=== PATIENT | male | born 1985 | race Caucasian/White ===

== ENCOUNTER 2021-10-12 05:41 | Emergency (ER) | payer MEDICAID ==
[~2021-10-12] VITALS: Ht 167.6 cm; Wt 59.0 kg
[~2021-10-12 05:41] MED LIST: CYCL-1 PO; IBUP-1985 PO; IBUP-1986 PO; ONDA4TAB12 PO; TAMS0.4C32 PO
[2021-10-12] MEDS ORDERED: dexamethasone sod phosphate 10mg/ml inj IV STA (05:45)
[2021-10-12] MEDS ORDERED: famotidine/PF 10 mg/ml inj IV ONE (05:45)
[2021-10-12] MEDS ORDERED: diphenhydrAMINE 50 mg/ml inj IV ONE (05:45)
[2021-10-12] MEDS ORDERED: normal saline 1000ML IV soln IVB ONE (05:45)
[2021-10-12] MEDS: epiNEPHrine 1 mg/ml inj SQ PRN ×2 (05:51→06:12)
[2021-10-12] MEDS ORDERED: PRED20TA PO (05:54)
[2021-10-12] MEDS ORDERED: EPIN0.3P3 IJ (05:54)
[2021-10-12] MEDS ORDERED: dexamethasone sod phosphate 10mg/ml inj PO STA (06:09)
--- NOTE | 2021-10-12 06:09 | NUR ---
UNABLE TO ESTABLISH AN IV AT THIS TIME. PER MD CONTRERAS GIVE 50MG BENADRYL IM AND 10MG DECADRON ORAL WELL 20MG PEPCID ORAL.
[2021-10-12] MEDS ORDERED: diphenhydrAMINE 50 mg/ml inj IM ONE (06:10)
[2021-10-12] MEDS ORDERED: famotidine 10mg tablet PO SCH (06:10)
[2021-10-12] MEDS ORDERED: famotidine 20mg tablet PO ONE (06:10)
[2021-10-12 08:23] VITALS: BP 112/64
== END 2021-10-12 09:33 | disposition home or self-care (01) ==
LOC: ER 05:41
DX: T78.1XXA Other adverse food reactions, not elsewhere classified, initial encounter (principal); R09.89 Other specified symptoms and signs involving the circulatory and respiratory systems; F12.90 Cannabis use, unspecified, uncomplicated; Z87.442 Personal history of urinary calculi; Z98.890 Other specified postprocedural states; Z56.0 Unemployment, unspecified; Z79.899 Other long term (current) drug therapy; Y92.89 Other specified places as the place of occurrence of the external cause
CPT/HCPCS: 96372; 99284; J0171; J1100; J1200

== ENCOUNTER 2021-10-15 12:04 | Emergency (ER) | payer MEDICAID ==
[~2021-10-15] VITALS: Ht 167.6 cm; Wt 59.0 kg
[~2021-10-15 12:04] MED LIST changes: +EPIN0.3P3 IJ; +PRED20TA PO
--- NOTE | 2021-10-15 12:12 | NUR ---
NO NEED FOR EKG PER DR CONTRERAS.
[2021-10-15] MEDS ORDERED: dexamethasone sod phosphate 10mg/ml inj IV STA (12:56)
[2021-10-15] MEDS ORDERED: famotidine/PF 10 mg/ml inj IV ONE (13:00)
[2021-10-15] MEDS ORDERED: normal saline 1000ML IV soln IVB ONE (13:00)
[2021-10-15] MEDS ORDERED: diphenhydrAMINE 50 mg/ml inj IV ONE (13:00)
[2021-10-15] MEDS ORDERED: diphenhydrAMINE 25mg capsule PO ONE (13:10)
[2021-10-15] MEDS ORDERED: famotidine 20mg tablet PO ONE (13:10)
--- NOTE | 2021-10-15 13:17 | NUR ---
PT DIFFICULT STICK FOR IV. PER DIANE, CHANGE ALL MEDS TO ORAL. ORDER CHANGED
[2021-10-15 13:34] VITALS: BP 130/84
== END 2021-10-23 09:59 | disposition home or self-care (01) ==
LOC: ER 12:05
DX: T78.1XXD Other adverse food reactions, not elsewhere classified, subsequent encounter (principal); R21 Rash and other nonspecific skin eruption; Z87.442 Personal history of urinary calculi; Z56.0 Unemployment, unspecified; Z79.899 Other long term (current) drug therapy; X58.XXXD Exposure to other specified factors, subsequent encounter
CPT/HCPCS: 99283; Q0163

== ENCOUNTER 2021-10-26 00:16 | Emergency (ER) | payer MEDICAID ==
[~2021-10-26] VITALS: Ht 167.6 cm; Wt 59.0 kg
[2021-10-26 00:28] VITALS: BP 121/78
[2021-10-26] MEDS ORDERED: ALBU8.5H17 INH (19:22)
[2021-10-26] MEDS ORDERED: PRED10TA23 PO (19:27)
== END 2021-10-26 02:19 | disposition left against medical advice (07) ==
LOC: ER 00:16
DX: R06.02 Shortness of breath (principal); Z53.21 Procedure and treatment not carried out due to patient leaving prior to being seen by health care provider
CPT/HCPCS: 93005

== ENCOUNTER 2021-10-26 15:52 | Emergency (ER) | payer MEDICAID ==
[~2021-10-26] VITALS: Ht 165.1 cm; Wt 59.1 kg
[2021-10-26 16:09] VITALS: BP 118/80
[2021-10-26] MEDS ORDERED: ipratropium/albuterol 3ml nebule NEB ONE (16:55)
[2021-10-26] MEDS ORDERED: predniSONE 20 mg tablet PO ONE (17:00)
[2021-10-26] MEDS ORDERED: ALBU8.5H17 INH (19:22)
[2021-10-26] MEDS ORDERED: PRED10TA23 PO (19:27)
== END 2021-10-26 19:35 | disposition home or self-care (01) ==
LOC: ER 15:53
DX: R06.2 Wheezing (principal); L23.7 Allergic contact dermatitis due to plants, except food; R06.02 Shortness of breath; F12.90 Cannabis use, unspecified, uncomplicated; Z87.442 Personal history of urinary calculi; Z98.890 Other specified postprocedural states; Z56.0 Unemployment, unspecified; Z79.899 Other long term (current) drug therapy
CPT/HCPCS: 94640; 99283; J7512; 94760

== ENCOUNTER 2022-01-24 20:33 | Emergency (ER) | payer MEDICAID ==
[~2022-01-24] VITALS: Ht 165.1 cm; Wt 59.1 kg
[~2022-01-24 20:33] MED LIST changes: +ALBU8.5H17 INH; -PRED20TA PO
[2022-01-24 20:35] VITALS: BP 124/78
== END 2022-01-24 22:35 | disposition left against medical advice (07) ==
LOC: ER 20:33
DX: T78.40XA Allergy, unspecified, initial encounter (principal); Z53.21 Procedure and treatment not carried out due to patient leaving prior to being seen by health care provider; Y92.89 Other specified places as the place of occurrence of the external cause

== ENCOUNTER 2022-02-17 03:11 | Observation (INO) | payer MEDICAID ==
[~2022-02-17] VITALS: Ht 165.1 cm; Wt 59.1 kg
--- NOTE | 2022-02-17 06:44 | NUR ---
Pt to CT. Transferred with SBA to wheelchair.
[2022-02-17 08:22] LABS: ALANINE AMINOTRANSFERASE 31 U/L (12-78); ALBUMIN 3.4 G/DL (3.4-5.0); ALBUMIN/GLOBULIN RATIO 0.6 (1.1-1.5); ALKALINE PHOSPHATASE 124 IU/L (46-116); ANION GAP 11 (8-16); ASPARTATE AMINO TRANSFERASE 27 U/L (10-37); BILIRUBIN,TOTAL 0.7 MG/DL (0.1-1.0); BLOOD UREA NITROGEN 7 MG/DL (7-18); C-REACTIVE PROTEIN 8.51 MG/DL (0.0-0.5); CALCIUM 8.8 MG/DL (8.5-10.1); CHLORIDE 101 MMOL/L (99-107); CREATININE 0.78 MG/DL (0.60-1.10); GLUCOSE 109 MG/DL (70-104); POTASSIUM 3.9 MMOL/L (3.5-5.1); SODIUM 139 MMOL/L (135-145); TOTAL CARBON DIOXIDE 26.8 MMOL/L (24-32); TOTAL PROTEIN 8.8 G/DL (6.4-8.2); eGFR > 90 ML/MIN
[2022-02-17 09:31] LABS: BASOPHILS # (AUTO) 0.1 X10'3 (0-0.2); BASOPHILS % (AUTO) 0.6 % (0-1); EOSINOPHILS # (AUTO) 0.2 X10'3 (0-0.9); HEMOGLOBIN 13.6 g/dl (14.0-17.9); LYMPHOCYTES # (AUTO) 1.5 X10'3 (1.1-4.8); LYMPHOCYTES % (AUTO) 13.2 % (21-51); MEAN CORPUSCULAR HGB CONC 33.8 g/dL (33.0-36.5); MEAN CORPUSCULAR VOLUME 79.9 FL (78-98); MEAN PLATELET VOLUME 6.7 FL (7.4-10.4); MONOCYTES # (AUTO) 0.7 X10'3 (0-0.9); MONOCYTES % (AUTO) 6.1 % (2-12); NEUTROPHILS # (AUTO) 8.6 X10'3 (1.8-7.7); NEUTROPHILS % (AUTO) 78.1 % (42-75); PLATELET COUNT 238 X10'3 (140-440); RED BLOOD COUNT 5.01 X10'6 (4.70-6.10); RED CELL DISTRIBUTION WIDTH 15.4 % (11.5-14.5)
--- NOTE | 2022-02-17 09:55 | NUR ---
PATIENT REQUESTING PRN PAIN MED.DR HUFF MADE AWARE.
[2022-02-17] MEDS ORDERED: morphine 4 MG/ML inj SYRINge IV ONE (10:15)
[2022-02-17] MEDS ORDERED: ondansetron/PF 4mg/2ml inj IV ONE (10:15)
[2022-02-17] MEDS ORDERED: dexamethasone sod phosphate 10mg/ml inj IV STA (10:27)
[2022-02-17] MEDS ORDERED: ketorolac tromethamine 15mg/ml inj. IV ONE (10:30)
[2022-02-17] MEDS ORDERED: proCHLORperazine 10 MG/2 ml inj IV ONE (10:30)
[2022-02-17] MEDS ORDERED: diphenhydrAMINE 50 mg/ml inj IV ONE (10:30)
[2022-02-17] MEDS ORDERED: SUMAtriptan succ. 6 MG/0.5ml vial SQ ONE (10:30)
[2022-02-17] MEDS ORDERED: normal saline 1000ML IV soln IVB ONE (10:30)
[2022-02-17] MEDS ORDERED: mag hydrox/Alum hydrox/simeth 30ml oral suspension PO PRN (13:45)
[2022-02-17] MEDS ORDERED: potassium CL 10mEq/100ml bag 100 ML IV PRN (13:45)
[2022-02-17] MEDS ORDERED: magnesium 2GM in 50ml NS 50 ML IV PRN (13:45)
[2022-02-17] MEDS ORDERED: magnesium 4gm in 100ml NS 100 ML IV PRN (13:45)
[2022-02-17] MEDS ORDERED: magnesium hydroxide 30ml (MOM) UD suspension PO PRN (13:45)
[2022-02-17] MEDS ORDERED: potassium Cl 20 mEq SR tablet PO PRN ×2 (13:45)
[2022-02-17] MEDS ORDERED: normal saline 1000ml 1,000 ML IV SCH (13:45)
[2022-02-17] MEDS ORDERED: ondansetron/PF 4mg/2ml inj IV PRN (13:45)
[2022-02-17] MEDS ORDERED: HYDROcodone/acetaminophen 5mg/325mg tablet PO PRN (13:45)
[2022-02-17] MEDS ORDERED: HYDROcodone/acetaminophen 10/325mg tab PO PRN (13:45)
[2022-02-17] MEDS ORDERED: acetaminophen 325mg tablet PO PRN ×2 (13:45)
[2022-02-17] MEDS ORDERED: GADOTERATE MEGLUMINE 7.5 MMOL/15 ML VIAL IV ONE (15:31)
[2022-02-17] MEDS ORDERED: NO HOME MEDS (16:04)
[2022-02-17] MEDS ORDERED: K and/or MAG REPLACEMENT MC SCH (20:00)
[2022-02-17] MEDS ORDERED: docusate sod 100mg capsule PO SCH (20:00)
[2022-02-17 23:16] VITALS: BP 108/63
[2022-02-18] MEDS ORDERED: AMOX-117 PO (07:18)
== END 2022-02-18 00:08 | disposition left against medical advice (07) ==
LOC: ER 03:11 → ED HOLD 13:48
PROVIDERS: ADMIT Family Medicine; ATTEND Family Medicine
DX: R20.2 Paresthesia of skin (principal); R51.9 Headache, unspecified; R20.0 Anesthesia of skin; R79.82 Elevated C-reactive protein (CRP); F12.90 Cannabis use, unspecified, uncomplicated; K04.7 Periapical abscess without sinus; R53.1 Weakness; Z53.29 Procedure and treatment not carried out because of patient's decision for other reasons; Z87.442 Personal history of urinary calculi; Z79.899 Other long term (current) drug therapy
CPT/HCPCS: 36415; 41800; 70450; 70553; 71045; 80053; 83605; 85025; 85651; 86140; 93005; 96361; 96372; 96374; 96375; 99285; A9575; G0378; J0780; J1100; J1200; J1885; J3030; J7030

== ENCOUNTER 2022-07-02 19:46 | Emergency (ER) | payer MEDICAID ==
[~2022-07-02] VITALS: Ht 162.6 cm; Wt 56.9 kg
[~2022-07-02 19:46] MED LIST changes: -ALBU8.5H17 INH; -CYCL-1 PO; -EPIN0.3P3 IJ; -IBUP-1985 PO; -IBUP-1986 PO; +NO HOME MEDS; -ONDA4TAB12 PO; -TAMS0.4C32 PO
[2022-07-02] MEDS ORDERED: iohexol 350MG/ML 100ml bottle IV ONE (20:24)
[2022-07-02 20:33] LABS: BASOPHILS % (AUTO) 0.5 % (0-1); EOSINOPHILS # (AUTO) 0.1 X10'3 (0-0.9); EOSINOPHILS % (AUTO) 2.7 % (0-6); HEMOGLOBIN 14.4 g/dl (14.0-17.9); LYMPHOCYTES # (AUTO) 1.9 X10'3 (1.1-4.8); LYMPHOCYTES % (AUTO) 34.3 % (21-51); MEAN CORPUSCULAR HEMOGLOBIN 27.3 PG (27.0-31.0); MEAN CORPUSCULAR HGB CONC 34.2 g/dL (33.0-36.5); MEAN CORPUSCULAR VOLUME 79.6 FL (78-98); MEAN PLATELET VOLUME 6.5 FL (7.4-10.4); MONOCYTES # (AUTO) 0.7 X10'3 (0-0.9); MONOCYTES % (AUTO) 11.9 % (2-12); NEUTROPHILS # (AUTO) 2.8 X10'3 (1.8-7.7); NEUTROPHILS % (AUTO) 50.6 % (42-75); PLATELET COUNT 163 X10'3 (140-440); RED BLOOD COUNT 5.28 X10'6 (4.70-6.10); RED CELL DISTRIBUTION WIDTH 14.5 % (11.5-14.5); WHITE BLOOD COUNT 5.5 X10'3 (4.5-11.0)
[2022-07-02 20:47] LABS: APTT 29 SECONDS (22-32)
[2022-07-02 20:50] LABS: ALANINE AMINOTRANSFERASE 26 U/L (12-78); ALBUMIN 3.3 G/DL (3.4-5.0); ALBUMIN/GLOBULIN RATIO 0.7 (1.1-1.5); ALKALINE PHOSPHATASE 100 IU/L (46-116); ANION GAP 8 (8-16); ASPARTATE AMINO TRANSFERASE 25 U/L (10-37); BILIRUBIN,TOTAL 0.2 MG/DL (0.1-1.0); BLOOD UREA NITROGEN 15 MG/DL (7-18); BUN/CREATININE RATIO 19.5 (5.4-32.0); CALCIUM 8.4 MG/DL (8.5-10.1); CHLORIDE 106 MMOL/L (99-107); CREATININE 0.77 MG/DL (0.60-1.10); GLUCOSE 105 MG/DL (70-104); POTASSIUM 3.9 MMOL/L (3.5-5.1); SODIUM 142 MMOL/L (135-145); TOTAL CARBON DIOXIDE 28.5 MMOL/L (24-32); TOTAL PROTEIN 8.1 G/DL (6.4-8.2); eGFR > 90 ML/MIN
--- NOTE | 2022-07-02 21:34 | NUR ---
[address] STEINER. RECAMANDAV[address] FOR HEAD CT.
[2022-07-02] MEDS ORDERED: SUMAtriptan succ. 6 MG/0.5ml vial SQ ONE (22:45)
[2022-07-02] MEDS ORDERED: normal saline 1000ML IV soln IVB ONE (22:45)
[2022-07-02] MEDS ORDERED: fentaNYL/PF 50MCG/1 ML 2ML syringe IV ONE (22:45)
[2022-07-02] MEDS ORDERED: proCHLORperazine 10 MG/2 ml inj IV ONE (22:45)
[2022-07-02] MEDS ORDERED: ketorolac tromethamine 15mg/ml inj. IV ONE (22:45)
[2022-07-02] MEDS ORDERED: acetaZOLAMIDE 250mg tablet PO ONE (22:45)
[2022-07-02] MEDS ORDERED: acetaZOLAMIDE 500mg capsule.SA PO ONE (23:10)
[2022-07-03 01:09] VITALS: BP 94/65
== END 2022-07-03 01:17 | disposition home or self-care (01) ==
LOC: ER 19:46
DX: G43.909 Migraine, unspecified, not intractable, without status migrainosus (principal); F12.90 Cannabis use, unspecified, uncomplicated; F15.20 Other stimulant dependence, uncomplicated; Z91.09 Other allergy status, other than to drugs and biological substances; Z56.0 Unemployment, unspecified
CPT/HCPCS: 70450; 71045; 80053; 85025; 85610; 85730; 93005; 96361; 96374; 96375; 99285; J0780; J1885; J3010; J3030; J3490; J7030; Q9967

== ENCOUNTER 2023-08-04 02:22 | Emergency (ER) | payer MEDICAID, OTHER ==
[~2023-08-04] VITALS: Ht 165.1 cm; Wt 59.1 kg
[2023-08-04 02:25] VITALS: BP 113/76; PULSE 89; RESP 16; TEMP 99.3; O2SAT 98
== END 2023-08-04 04:48 | disposition left against medical advice (07) ==
LOC: ER 02:23
DX: R06.02 Shortness of breath (principal); Z20.822 Contact with and (suspected) exposure to COVID-19; Z53.21 Procedure and treatment not carried out due to patient leaving prior to being seen by health care provider
CPT/HCPCS: 36415; 71045; 87811; 99281

== ENCOUNTER 2024-01-16 22:43 | Emergency (ER) | payer OTHER ==
[~2024-01-16] VITALS: Ht 165.1 cm; Wt 75.0 kg
[2024-01-16 22:45] VITALS: BP 136/75; PULSE 88; RESP 26; TEMP 97.6; O2SAT 100
== END 2024-01-17 03:39 | disposition left against medical advice (07) ==
LOC: ER 22:44
DX: R10.9 Unspecified abdominal pain (principal)
CPT/HCPCS: 99281